=== PATIENT | female | born 2000 | race Caucasian/White ===

== ENCOUNTER 2023-08-25 16:07 | Emergency (ER) | payer MEDICAID ==
[~2023-08-25] VITALS: Ht 147.3 cm; Wt 61.0 kg
[2023-08-25 16:21] VITALS: O2SAT 98
[2023-08-25 20:20] VITALS: BP 118/70; PULSE 82; RESP 14; TEMP 98.8
== END 2023-08-25 20:26 | disposition home or self-care (01) ==
LOC: ER 16:07
DX: S00.83XA Contusion of other part of head, initial encounter (principal); Y08.89XA Assault by other specified means, initial encounter; Y93.89 Activity, other specified; Y92.89 Other specified places as the place of occurrence of the external cause; Y99.8 Other external cause status
CPT/HCPCS: 81025; 99284